=== PATIENT | male | born 1980 | race American Indian/Alaskan Native ===

== ENCOUNTER 2019-01-25 11:28 | Emergency (ER) | payer SELFPAY ==
[2019-01-25] MEDS ORDERED: BOOSTRIX IM ONE (11:37)
--- NOTE | 2019-01-25 11:37 | Event Note ---
ED Screening Note Date of service: 01/25/19 Time: 11:34 ED Screening Note: This is a 38 y.o. M. that presents to the ER with laceration to 5th left distal finger. Patient states he cut his finger 2 days ago while cutting chicken at home. Current smoker 2 ppd. Tetanus not UTD. This initial assessment/diagnostic orders/clinical plan/treatment(s) is/are subject to change based on patients health status, clinical progression and re- assessment by fellow clinical providers in the ED. Further treatment and workup at subsequent clinical providers discretion. Patient/guardian urged not to elope from the ED as their condition may be serious if not clinically assessed and managed. Initial orders include: ACC for further evaluation.
--- NOTE | 2019-01-25 12:52 | Emergency Department Report ---
ED Laceration HPI - HPI Chief Complaint: Wound/Laceration Stated Complaint: L FINGER INJURY Time Seen by Provider: 01/25/19 11:33 Occurred When: Before Yesterday Location: Upper Extremity Severity: mild Tetanus Status: Not up to Date Laceration Symptoms: Yes Pain, No Foreign Body Sensation, No Numbness, No Weakness Other History: This is a 38-year-old female nontoxic, well nourished in appearance, no acute signs of distress presents to the ED with c/o of left 5th finger lac that happened 3 days ago. Patient stated cut it accidentally at home with knife. Patient denies decreased sensation or range of motion. Patient stated bleeding is under control. Denies any numbness, tingling, fever, chills, nausea, vomiting, chest pain, shortness of breath, headache or stiff neck. Patient denies any allergies to significant past medical history. Patient is that he is not up-to-date with tetanus. ED Review of Systems ROS: Stated complaint: L FINGER INJURY Other details as noted in HPI Constitutional: denies: chills, fever Eyes: denies: eye pain, eye discharge, vision change ENT: denies: ear pain, throat pain Respiratory: denies: cough, shortness of breath, wheezing Cardiovascular: denies: chest pain, palpitations Endocrine: no symptoms reported Gastrointestinal: denies: abdominal pain, nausea, diarrhea Genitourinary: denies: urgency, dysuria Musculoskeletal: denies: back pain, joint swelling, arthralgia Skin: denies: rash, lesions Neurological: denies: headache, weakness, paresthesias Psychiatric: denies: anxiety, depression Hematological/Lymphatic: denies: easy bleeding, easy bruising ED Past Medical Hx - Social History Smoking Status: Current Every Day Smoker Substance Use Type: Alcohol - Medications Home Medications: Home Medications Medication Instructions Recorded Confirmed Last Taken Type Acetaminophen/Codeine [Tylenol 1 tab PO Q6H PRN #12 tab 01/25/19 Unknown Rx /Codeine # 3 tab] Sulfamethoxazole/Trimethoprim 1 each PO BID #14 tablet 01/25/19 Unknown Rx [Bactrim DS TAB] Laceration Physical Exam - Exam General: Vital signs noted. No distress. Alert and acting appropriately. Wound Length (cm): 1 (left fifth finger) Laceration Location: Upper Extremity Laceration Exam: Yes Normal Distal CMS, No Foreign Body, No Exposed Tendon, Vessel, or Nerve, No Tendon Injury ED Course Vital Signs 01/25/19 11:34 Temperature 98.2 F Pulse Rate 138 H Respiratory 18 Rate Blood Pressure 147/95 O2 Sat by Pulse 97 Oximetry - Reevaluation(s) Reevaluation #1: 01/25/19 12:49 Patient is speaking in full sentences with no signs of distress noted. ED Medical Decision Making - Medical Decision Making This is a 38-year-old male that presents with laceration. Patient is stable and was examined by me. Suturing has not been performed due to laceration occurred more than 24 hours. Area has been cleaned and a sterile dressing applied. Patient was educated on proper wound care. Patient is discharged with Bactrim and Tylenol with codeine and was instructed not to operate any machinery while taking Tylenol with codeine due to drowsiness. Patient also received a tetanus in the ER. Patient was instructed to refer to Follow-up with a primary care doctor in 3-5 days or if symptoms worsen and continue return to emergency room as soon as possible. At time of discharge, the patient does not seem toxic or ill in appearance. No acute signs of distress noted. Patient agrees to discharge treatment plan of care. No further questions noted by the patient. Critical care attestation.: If time is entered above; I have spent that time in minutes in the direct care of this critically ill patient, excluding procedure time. ED Disposition Clinical Impression: Laceration Disposition: DC-01 TO HOME OR SELFCARE Is pt being admited?: No Does the pt Need Aspirin: No Condition: Stable Instructions: Laceration (ED), Acetaminophen/Codeine (By mouth), Acute Wound Care (ED) Additional Instructions: Follow-up with a primary care doctor in 3-5 days or if symptoms worsen and continue return to emergency room as soon as possible. Do not operate any machinery while taking Tylenol with codeine as this may cause drowsiness. Prescriptions: Sulfamethoxazole/Trimethoprim [Bactrim DS TAB] 1 each PO BID #14 tablet Acetaminophen/Codeine [Tylenol /Codeine # 3 tab] 1 tab PO Q6H PRN #12 tab PRN Reason: Pain , Severe (7-10) Referrals: PRIMARY CARE, [Referring] - 3-5 Days OTF BROWN MD [Staff Physician] - 3-5 Days [facility] [Outside] - 3-5 Days [facility] [Outside] - 3-5 Days Forms: Work/School Release Form(ED)
[2019-01-25 13:30] VITALS: BP 145/91
== END 2019-01-25 13:21 | disposition home or self-care (01) ==
LOC: ED 11:28
DX: S61.217A Laceration without foreign body of left little finger without damage to nail, initial encounter (principal); W26.0XXA Contact with knife, initial encounter; Y93.89 Activity, other specified; Y92.019 Unspecified place in single-family (private) house as the place of occurrence of the external cause; Y99.8 Other external cause status
CPT/HCPCS: 90471; 90715; 99282

== ENCOUNTER 2020-08-05 11:10 | Emergency (ER) | payer SELFPAY ==
[2020-08-05 11:30] VITALS: BP 151/87
--- NOTE | 2020-08-05 11:50 | Emergency Department Report ---
ED General Adult HPI - General Chief complaint: Upper Respiratory Infection Stated complaint: COUGHING PUI?: Yes Source: patient Mode of arrival: Ambulatory Limitations: No Limitations - History of Present Illness Initial comments: 40-year-old -Indian male presents to the emergency room complaining of persistent cough chest and rib pain from coughing. Reports he has chest pain that shoots up to his left ear. Denies any nausea no vomiting. States he is taking [id number] NyQuil and DayQuil without much relief. States he has not had a Covid test. Denies any past medical history takes no medications on a daily basis. Onset/Timin -: days(s) Location: chest Severity scale (0 -10): 6 Quality: aching Consistency: intermittent Improves with: none Worsens with: other (cough) Associated Symptoms: cough, shortness of breath Treatments Prior to Arrival: other (tylenol) - Related Data Previous Rx's Medication Instructions Recorded Last Taken Type Acetaminophen/Codeine [Tylenol 1 tab PO Q6H PRN #12 tab 01/25/19 Unknown Rx /Codeine # 3 tab] Sulfamethoxazole/Trimethoprim 1 each PO BID #14 tablet 01/25/19 Unknown Rx [Bactrim DS TAB] Benzonatate [Tessalon Perles] 100 mg PO Q8HR #21 capsule 08/05/20 Unknown Rx Allergies Allergy/AdvReac Type Severity Reaction Status Date / Time No Known Allergies Allergy Unverified 01/25/19 11:29 ED Review of Systems ROS: Stated complaint: COUGHING Other details as noted in HPI Comment: All other systems reviewed and negative ED Past Medical Hx - Past Medical History Previous Medical History?: No - Surgical History Past Surgical History?: No - Social History Smoking Status: Current Every Day Smoker Substance Use Type: Marijuana - Medications Home Medications: Home Medications Medication Instructions Recorded Confirmed Last Taken Type Acetaminophen/Codeine [Tylenol 1 tab PO Q6H PRN #12 tab 01/25/19 Unknown Rx /Codeine # 3 tab] Sulfamethoxazole/Trimethoprim 1 each PO BID #14 tablet 01/25/19 Unknown Rx [Bactrim DS TAB] Benzonatate [Tessalon Perles] 100 mg PO Q8HR #21 capsule 08/05/20 Unknown Rx ED Physical Exam - General Limitations: No Limitations General appearance: alert, in no apparent distress - Head Head exam: Present: atraumatic, normocephalic - ENT ENT exam: Present: mucous membranes dry - Respiratory Respiratory exam: Present: accessory muscle use, other (Actively coughing) - Cardiovascular Cardiovascular Exam: Present: regular rate, normal rhythm. Absent: systolic murmur, diastolic murmur, rubs, gallop - Neurological Exam Neurological exam: Present: alert, oriented X3, normal gait - Psychiatric Psychiatric exam: Present: normal affect, normal mood - Skin Skin exam: Present: warm, dry, intact, normal color. Absent: rash ED Course Vital Signs 08/05/20 11:29 Temperature 98.2 F Pulse Rate 89 Respiratory 18 Rate Blood Pressure 151/87 O2 Sat by Pulse 93 Oximetry ED Medical Decision Making - Lab Data Result diagrams: 08/05/20 12:11 08/05/20 12:11 - Radiology Data Radiology results: report reviewed [facility] [address] [place] [address] XRay Report Signed Patient: MARK PEREZ MR# : [id number] : 1980 Acct:[id number] Age/Sex: 40 / M ADM Date: 08/05/20 Loc: ED Attending Dr: Ordering Physician: CHAI CARMEN Date of Service: 08/05/20 Procedure(s): XR chest routine 2V Accession Number(s): [id number] cc: CHAI CARMEN Fluoro Time In Minutes: CHEST 2 VIEWS INDICATION / CLINICAL INFORMATION: Shortness of breath, cough, Rales. COMPARISON: None available. FINDINGS: SUPPORT DEVICES: None. HEART / MEDIASTINUM: No significant abnormality. LUNGS / PLEURA: No significant pulmonary or pleural abnormality. No pneumothorax. ADDITIONAL FINDINGS: No significant additional findings. IMPRESSION: 1. No acute findings. Signer Name: Semaj Deal MD Signed: 08/05/2020 12:22 PM Workstation Name: [id number] Transcribed By: PHILL Dictated By: Semaj Deal MD Electronically Authenticated By: Semaj Deal MD Signed Date/Time: 08/05/20 1222 DD/ 21 TD/TT: - Medical Decision Making 40-year-old -Indian male presents to the emergency room complaining of persistent cough chest and rib pain from coughing. Reports he has chest pain that shoots up to his left ear. Denies any nausea no vomiting. States he is taking [id number] NyQuil and DayQuil without much relief. States he has not had a Covid test. Denies any past medical history takes no medications on a daily basis. Basic labs and chest x-ray was ordered as well as EKG. Labs are stable chest x-ray is within normal limits EKG is nonactionable. Second troponin was ordered patient is nowhere to be found. radiology technician has been calling multiple times. I do not appreciate patient in the waiting room. It appears that patient has eloped. Critical care attestation.: If time is entered above; I have spent that time in minutes in the direct care of this critically ill patient, excluding procedure time. ED Disposition Clinical Impression: Cough in adult patient, Hyperglycemia Disposition: Z- ELOPED Is pt being admited?: No Does the pt Need Aspirin: No Condition: Stable Instructions: Hyperglycemia, [id number], Cough, Adult, Blood Glucose Monitoring, Adult Additional Instructions: EKG is negative for any cardiac concerns. I am concerned for your blood sugar as it was 253. This is not a fasting blood sugar but it does concern that she may be developing diabetes. I do recommend that she follow-up with a primary care provider within the next week to have a full physical with blood work to rule out diabetes. As far as your cough you can take Tessalon Perles that I have prescribed to you. Your chest x-ray is negative for any concerns Pneumonia. I do recommend that she get Covid test. You can take Tylenol or ibuprofen as needed for pain management. Prescriptions: Benzonatate [Tessalon Perles] 100 mg PO Q8HR #21 capsule Referrals: PRIMARY CAREMD [Primary Care Provider] - 3-5 Days GAGE MARSHALL MD [Staff Physician] - 3-5 Days SIMON SCHMIDT MD [Staff Physician] - 3-5 Days GABI CROWLEY MD [Staff Physician] - 3-5 Days [facility] [Provider Group] - 3-5 Days Forms: Work/School Release Form(ED)
--- NOTE | 2020-08-05 12:26 | XRay Report ---
CHEST 2 VIEWS INDICATION / CLINICAL INFORMATION: Shortness of breath, cough, Rales. COMPARISON: None available. FINDINGS: SUPPORT DEVICES: None. HEART / MEDIASTINUM: No significant abnormality. LUNGS / PLEURA: No significant pulmonary or pleural abnormality. No pneumothorax. ADDITIONAL FINDINGS: No significant additional findings. IMPRESSION: 1. No acute findings. Signer Name: Semaj Deal MD Signed: 08/05/2020 12:22 PM Workstation Name: [id number]
[2020-08-05 13:10] LABS: Basophils % (Auto) 0.3 % (0.0-1.8); Eosinophils # (Auto) 0.1 K/mm3 (0.0-0.4); Eosinophils % (Auto) 1.5 % (0.0-4.3); Hematocrit 48.3 % (35.5-45.6); Hemoglobin 16.5 gm/dl (11.8-15.2); Lymphocytes # (Auto) 0.9 K/mm3 (1.2-5.4); Lymphocytes % (Auto) 16.4 % (13.4-35.0); Mean Corpuscular HGB Conc 34 % (32-34); Mean Corpuscular Volume 83 fl (84-94); Monocytes # (Auto) 0.4 K/mm3 (0.0-0.8); Monocytes % (Auto) 7.1 % (0.0-7.3); Platelet Count 217 K/mm3 (140-440); Red Blood Count 5.81 M/mm3 (3.65-5.03); Red Cell Distribution Width 12.9 % (13.2-15.2)
[2020-08-05 13:25] LABS: Alanine Aminotransferase 19 units/L (7-56); Albumin 4.5 g/dL (3.9-5); BUN/Creatinine Ratio 8; Blood Urea Nitrogen 9 mg/dL (9-20); Calcium 9.6 mg/dL (8.4-10.2); Hemolysis Index 11
== END 2020-08-05 16:39 | disposition left against medical advice (07) ==
LOC: ED 11:10
DX: R05 Cough (principal); R73.9 Hyperglycemia, unspecified; F17.200 Nicotine dependence, unspecified, uncomplicated; F12.10 Cannabis abuse, uncomplicated; Z79.899 Other long term (current) drug therapy
CPT/HCPCS: 36415; 71046; 80053; 84484; 85025; 93005; 99283